=== PATIENT | female | born 1980 | race African-American/Black ===

== ENCOUNTER 2017-04-29 19:13 | Emergency (ER) | payer OTHER ==
[~2017-04-29] VITALS: Ht 180.3 cm; Wt 99.8 kg
[2017-04-29 19:18] VITALS: BP 107/67
== END 2017-04-29 20:04 | disposition home or self-care (01) ==
LOC: ER 19:17
DX: B37.3 Candidiasis of vulva and vagina (principal); J45.909 Unspecified asthma, uncomplicated; Z88.6 Allergy status to analgesic agent; J45.901 Unspecified asthma with (acute) exacerbation
CPT/HCPCS: 84703; 99283; A4606; Z7610

== ENCOUNTER 2017-08-27 14:34 | Emergency (ER) | payer OTHER ==
[~2017-08-27] VITALS: Ht 177.8 cm; Wt 102.1 kg
[2017-08-27 14:37] VITALS: BP 119/67
== END 2017-08-27 14:53 | disposition home or self-care (01) ==
LOC: ER 14:37
DX: J06.9 Acute upper respiratory infection, unspecified (principal); J45.909 Unspecified asthma, uncomplicated; Z88.6 Allergy status to analgesic agent
CPT/HCPCS: 99283; A4606; Z7610

== ENCOUNTER 2022-08-18 03:19 | Emergency (ER) | payer MEDICAID, OTHER ==
[~2022-08-18] VITALS: Ht 180.3 cm; Wt 99.8 kg
[2022-08-18 03:42] VITALS: BP 141/90
--- NOTE | 2022-08-18 03:42 | NUR ---
BIBSELF C/O sinus congestion, nausea, chelo earache, dizzy for the past few days. tested covid (-) this week. PT A/OX4. TOLERATING R/A WELL WITH NO RESP DISTRESS. AMBULATORY WITH STEADY GAIT. SAFETY MEASURES IN PLACE.
[2022-08-18] MEDS ORDERED: FLUC150T PO ×2 (04:07→04:10)
[2022-08-18] MEDS ORDERED: P-EP-92 PO ×2 (04:07→04:10)
[2022-08-18] MEDS ORDERED: AZIT250T PO ×2 (04:07→04:10)
[2022-08-18] MEDS ORDERED: CARB15DR12 EACH EAR ×2 (04:07→04:10)
--- NOTE | 2022-08-18 04:37 | NUR ---
Patient discharged to home in stable condition. Written and verbal after care instructions given. Patient verbalizes understanding of instruction.
== END 2022-08-18 04:37 | disposition home or self-care (01) ==
LOC: ER 03:24
DX: J32.9 Chronic sinusitis, unspecified (principal); R06.4 Hyperventilation; J45.909 Unspecified asthma, uncomplicated; Z88.8 Allergy status to other drugs, medicaments and biological substances; Z60.2 Problems related to living alone; Z79.899 Other long term (current) drug therapy